=== PATIENT | female | born 1975 | race Caucasian/White ===

== ENCOUNTER 2020-07-10 09:47 | Outpatient (NON) | payer OTHER, SELFPAY ==
[2020-07-11 01:24] LABS: SARS-CoV-2 RNA PCR Negative
== END 2020-07-10 09:48 ==
PROVIDERS: PCP Physician Assistant; Visit Provider Physician Assistant
DX: Z20.828 Contact with and (suspected) exposure to other viral communicable diseases (principal); R51.9 Headache, unspecified
CPT/HCPCS: 87635; C9803; U0003

== ENCOUNTER → 2021-09-16 14:44 | Outpatient (CLI) | payer OTHER, SELFPAY ==
--- NOTE | ~2021-09-16 | CT_ITS ---
EXAMINATION: CT abdomen pelvis wo con DATE: 09/16/2021 15:10 INDICATION: Bilateral flank pain TECHNIQUE: Computed tomography (CT) of the abdomen and pelvis was performed without intravenous contr ast. The dose-length product (DLP) was 555.76 mGy-cm. Automated exposure control and iterative recons truction technique were employed. COMPARISON: None FINDINGS: The lung bases are clear. The heart size is normal. The liver, spleen, pancreas, gallbladde r, and adrenal glands are normal. There is a 2 mm nonobstructing stone of the left mid kidney. No sto stormy are identified in the right kidney, ureters, or bladder. There is no hydronephrosis or hydrourete r. There are phleboliths of the pelvis. Uterine fibroids are noted. No pathologically enlarged abdomi nal or pelvic lymph nodes are identified. There is no free intraperitoneal gas or evidence of bowel o bstruction. The appendix is normal. There is severe lumbar spondylosis at L5-S1. IMPRESSION: 1. Left nephrolithiasis. No hydronephrosis or hydroureter. Reviewed, dictated and finalized at location F. [employer]
== END ==
PROVIDERS: PCP Physician Assistant; Visit Provider Obstetrics & Gynecology
DX: R10.9 Unspecified abdominal pain (principal); R30.0 Dysuria; N20.0 Calculus of kidney
CPT/HCPCS: 74176

== ENCOUNTER → 2021-09-27 12:00 | Outpatient (CLI) | payer OTHER, SELFPAY ==
--- NOTE | ~2021-09-27 | XR_ITS ---
EXAMINATION: XR abdomen/kub 1V INDICATION: Calculus of the ureter TECHNIQUE: Supine views of the abdomen were obtained on 2 radiographs. COMPARISON: CT, 09/16/2021 FINDINGS: There are phleboliths of the pelvis. No definite stones are identified in the ureters or ur inary bladder. The visualized lung bases are clear. The bowel gas pattern is normal. IMPRESSION: 1. No definite urolithiasis identified. Reviewed, dictated and finalized at location B. [employer]
== END ==
DX: N20.1 Calculus of ureter (principal)
CPT/HCPCS: 74018